=== PATIENT | male | born 1950 | race African-American/Black ===

== ENCOUNTER 2016-11-08 06:52 | Emergency (ER) | payer MEDICARE ==
[2016-11-08 08:18] VITALS: BP 160/98
--- NOTE | 2016-11-08 09:54 | Emergency Department Report ---
HPI - General Chief Complaint: Pain General Time Seen by Provider: 11/08/16 09:38 - HPI HPI: Patient here for lump above the naval that has been there for 20 years and is recently grown in size. Patient denies any nausea vomiting diarrhea, weakness, fever or chills, abdominal pain. Patient also requesting refill of blood pressure medicine. ED Past Medical Hx - Past Medical History Previous Medical History?: Yes Hx Hypertension: Yes Hx Heart Attack/AMI: No Hx Congestive Heart Failure: No Hx Diabetes: No Hx Liver Disease: No Hx Renal Disease: No Hx Sickle Cell Disease: No Hx Seizures: No Hx Asthma: No Hx COPD: No Hx HIV: No - Surgical History Past Surgical History?: Yes Hx Pacemaker: No Hx Internal Defibrillator: No Hx Cholecystectomy: Yes - Social History Smoking Status: Never Smoker Substance Use Type: Prescribed - Medications Home Medications: Home Medications Medication Instructions Recorded Confirmed Last Taken Type Pantoprazole [Protonix TAB] 40 mg PO QDAY #30 tablet 06/25/13 11/13/13 Unknown Rx Levofloxacin [Levaquin] 500 mg PO QDAY #7 tablet 11/14/13 Unknown Rx oxyCODONE /ACETAMINOPHEN [Percocet 1 tab PO Q4H PRN #60 tablet 11/14/13 Unknown Rx 5/325 mg] Ondansetron [Zofran Odt] 4 mg PO QID PRN #20 tab.rapdis 06/10/15 Unknown Rx Potassium Chloride 20 meq PO QDAY #7 packet 06/10/15 Unknown Rx Hydrochlorothiazide [HCTZ] 25 mg PO QDAY #14 tablet 11/08/16 Unknown Rx ED Review of Systems ROS: Stated complaint: LUMP ON STOMACH Other details as noted in HPI Constitutional: denies: chills, fever Eyes: denies: eye pain, eye discharge, vision change ENT: denies: ear pain, throat pain Respiratory: denies: cough, shortness of breath, wheezing Cardiovascular: denies: chest pain, palpitations Endocrine: no symptoms reported Gastrointestinal: other (nontender supraumbilical mass is been there for 20 years.). denies: abdominal pain, nausea, vomiting, diarrhea, constipation, hematemesis, melena, hematochezia Genitourinary: denies: urgency, dysuria Musculoskeletal: denies: back pain, joint swelling, arthralgia Skin: denies: rash, lesions Neurological: denies: headache, weakness, paresthesias Psychiatric: denies: anxiety, depression Hematological/Lymphatic: denies: easy bleeding, easy bruising Physical Exam - Physical Exam Vital Signs: Vital Signs 11/08/16 08:15 Temperature 98.8 F Pulse Rate 81 Respiratory 18 Rate Blood Pressure 160/98 O2 Sat by Pulse 98 Oximetry General: Patient's awake alert and oriented, no focal neuro deficits, speaking in full sentences, HEENT clear, eyes are PERRLA, extraocular movements intact, no tracheal deviation, full range of motion of the neck, no lymphadenopathy. Patient's bowel breath sounds clear to auscultation with no respiratory distress noted, abdomen soft nontender noted 2 cm fleshy mass just superiorto navel , lesion consistent with lipoma. No surrounding erythema, lymphangitis, or lymphadenopathy. Patient has normal gait, brisk cap refill of all extremities. Patient's normotensive normal cardiac and afebrile. Patient's blood pressure medication refilled, patient referred to surgeon for assessment of abdominal mass. ED Course Vital Signs 11/08/16 08:15 Temperature 98.8 F Pulse Rate 81 Respiratory 18 Rate Blood Pressure 160/98 O2 Sat by Pulse 98 Oximetry - Reevaluation(s) Reevaluation #1: 11/08/16 12:[address] Murray and agrees with plan. Critical care attestation.: If time is entered above; I have spent that time in minutes in the direct care of this critically ill patient, excluding procedure time. ED Disposition Clinical Impression: Lipoma of abdominal wall, Medication refill Disposition: DISCHARGED TO HOME OR SELFCARE Is pt being admited?: No Condition: Stable Instructions: Lipoma (ED) Prescriptions: Hydrochlorothiazide [HCTZ] 25 mg PO QDAY #14 tablet Referrals: LUIS ALFREDO DUMAS MD [Staff Physician] - 3-5 Days SINDY SOLARES MD [Primary Care Provider] - 3-5 Days
== END 2016-11-08 10:07 | disposition home or self-care (01) ==
LOC: ED 06:52
DX: Z76.0 Encounter for issue of repeat prescription (principal); D17.1 Benign lipomatous neoplasm of skin and subcutaneous tissue of trunk; I10 Essential (primary) hypertension; Z90.49 Acquired absence of other specified parts of digestive tract
CPT/HCPCS: 99282